=== PATIENT | male | born 1985 | race African-American/Black ===

== ENCOUNTER 2016-08-27 01:04 | Emergency (ER) | payer MEDICAID ==
[~2016-08-27] VITALS: Ht 177.8 cm; Wt 77.0 kg
[2016-08-27 01:15] VITALS: BP 130/95
[2016-08-27] MEDS ORDERED: TETANUS, DIPHTHERIA, PERTUSSIS VAC/PF 0.5ML (>7YR OLD) IM ONE (03:00)
[2016-08-27] MEDS ORDERED: LIDOCAINE HCL 1%/EPI 1:200,000 30 ML VIAL MC ONE (03:00)
[2016-08-27] MEDS ORDERED: BACITRACIN ZINC OINT UDPKT TOP ONE (03:00)
== END 2016-08-27 03:46 | disposition home or self-care (01) ==
LOC: ER 01:12
DX: S01.81XA Laceration without foreign body of other part of head, initial encounter (principal); F32.9 Major depressive disorder, single episode, unspecified; F90.9 Attention-deficit hyperactivity disorder, unspecified type; F12.10 Cannabis abuse, uncomplicated; W22.8XXA Striking against or struck by other objects, initial encounter; Y93.89 Activity, other specified; Y92.89 Other specified places as the place of occurrence of the external cause; Y99.8 Other external cause status
CPT/HCPCS: 12011; 90471; 90715; 99283; Z7610

== ENCOUNTER 2021-01-29 09:50 | Inpatient (IN) | payer MEDICAID ==
[~2021-01-29] VITALS: Ht 172.7 cm; Wt 77.1 kg
[2021-01-29] VITALS (7 sets, daily range): BP systolic 116–134; BP diastolic 59–83
[2021-01-29] MEDS ORDERED: ACETAMINOPHEN 500MG TABLET PO NR (11:30)
[2021-01-29] MEDS ORDERED: ACETAMINOPHEN 500MG TABLET PO ONE (11:30)
[2021-01-29] MEDS ORDERED: LIDOCAINE HCL/PF 1% 10 MG/ML 5ML VIAL INFIL ONE (11:30)
[2021-01-29] MEDS ORDERED: BACITRACIN ZINC OINT UDPKT TOP NR (11:30)
[2021-01-29] MEDS ORDERED: BACITRACIN ZINC OINT UDPKT TOP ONE (11:30)
[2021-01-29] MEDS ORDERED: LIDOCAINE HCL 1% 10 MG/ML 10ML VIAL INJ NR (11:30)
[2021-01-29] MEDS ORDERED: CEFAZOLIN 1000MG PREMIX 50 ML IV ONE (13:45)
[2021-01-29] MEDS ORDERED: SODIUM CHLORIDE 0.9% 1,000 ML IV ONE (13:45)
[2021-01-29] MEDS ORDERED: GENTAMICIN 80MG PREMIX 100 ML IV ONE (13:45)
[2021-01-29 14:11] LABS: BASOPHILS % 0.7 % (0.0-2.0); EOSINOPHILS % 1.9 % (0.0-5.0); HEMATOCRIT. 39.1 % (42.0-52.0); HEMOGLOBIN. 12.9 g/dL (14.0-18.0); MEAN CORPUSCULAR HEMOGLOBIN 30.4 pg (28.0-32.0); MEAN CORPUSCULAR VOLUME 92.1 fL (80.0-94.0); MEAN PLATELET VOLUME 11.2 fl (7.4-10.4); MONOCYTES % 9.1 % (2.0-8.0); NEUTROPHILS % 73.3 % (40.0-76.0); PLATELET 193 x1000/uL (130-400); RED BLOOD CELL COUNT 4.24 mill/uL (4.7-6.1); RED CELL DISTRIBUTION WIDTH 13.1 % (11.6-14.6)
[2021-01-29] MEDS ORDERED: LEVETIRACETAM 500MG PREMIX 100 ML IV ONE (14:15)
[2021-01-29 14:18] LABS: CHLORIDE 107 mEq/L (98-107)
[2021-01-29 14:22] LABS: PARTIAL THROMBOPLASTIN TIME 29.5 sec (23.4-31.0); PROTHROMBIN TIME 11.1 sec (9.6-11.0)
[2021-01-29 15:58] LABS: CLARITY URINE TURBID (CLEAR); COLOR URINE YELLOW (YELLOW); KETONES URINE NEGATIVE (NEGATIVE); LEUKOCYTE ESTERASE URINE NEGATIVE (NEGATIVE); NITRITE URINE NEGATIVE (NEGATIVE); OCCULT BLOOD URINE NEGATIVE (NEGATIVE); PROTEIN URINE 1+ (NEGATIVE); SPECIFIC GRAVITY URINE 1.021 (1.005-1.030)
[2021-01-29] MEDS ORDERED: HYDROCODONE/APAP 7.5/325MG 1 TAB TABLET PO PRN (18:30)
[2021-01-29] MEDS ORDERED: CLONIDINE 0.1MG TABLET PO PRN (18:30)
[2021-01-29] MEDS ORDERED: ONDANSETRON HCL 4MG/2ML INJ IV PRN (18:30)
[2021-01-29] MEDS ORDERED: DOCUSATE SODIUM 100MG CAPSULE PO PRN (18:30)
[2021-01-29] MEDS ORDERED: GUAIFENESIN 200MG/10ML SUGAR FREE UDC PO PRN (18:30)
[2021-01-29] MEDS ORDERED: ACETAMINOPHEN 325MG TABLET PO PRN (18:30)
[2021-01-29] MEDS ORDERED: NALOXONE HCL 0.4MG/ML VIAL IV PRN (18:45)
[2021-01-30] VITALS (34 sets, daily range): BP systolic 97–151; BP diastolic 42–123
[2021-01-30 05:54] LABS: BASOPHILS % 0.8 % (0.0-2.0); EOSINOPHILS % 3.3 % (0.0-5.0); HEMATOCRIT. 37.4 % (42.0-52.0); HEMOGLOBIN. 12.4 g/dL (14.0-18.0); LYMPHOCYTES % 26.1 % (20.0-50.0); MEAN CORPUSCULAR HEMOGLOBIN 30.7 pg (28.0-32.0); MEAN CORPUSCULAR VOLUME 92.5 fL (80.0-94.0); MONOCYTES % 13.2 % (2.0-8.0); NEUTROPHILS % 56.6 % (40.0-76.0); RED BLOOD CELL COUNT 4.04 mill/uL (4.7-6.1)
[2021-01-30 06:02] LABS: CHLORIDE 108 mEq/L (98-107)
[2021-01-30 14:42] LABS: MEAN PLATELET VOLUME 11.3 fl (7.4-10.4); PLATELET 163 x1000/uL (130-400)
[2021-01-30] MEDS: HYDROCODONE/APAP 7.5/325MG 1 TAB TABLET PO PRN (23:57)
[2021-01-31] VITALS: BP 117/60
[2021-01-31 04:00] VITALS: BP 113/65
[2021-01-31 08:00] VITALS: BP 120/60
[2021-01-31] MEDS: HYDROCODONE/APAP 7.5/325MG 1 TAB TABLET PO PRN (11:19)
[2021-01-31 12:00] VITALS: BP 122/54
[2021-01-31 16:00] VITALS: BP 122/69
[2021-02-01 08:00] VITALS: BP 113/69
[2021-02-01 12:09] VITALS: BP 113/69
== END 2021-02-01 12:16 | disposition home or self-care (01) | DRG 364 ==
LOC: ER 09:50 → MICUSO 15:40 → EDBEDREQ 15:42 → EDBEDREQTM 15:42 → ENRESERV 20:23 → 6EST 01-30 16:45
PROVIDERS: ADMIT Hospitalist; ATTEND Hospitalist
PROC: 0WQ0XZZ Repair Head, External Approach (ICD-10-PCS; principal; 2021-01-29)
DX: S01.81XA Laceration without foreign body of other part of head, initial encounter (principal); S02.0XXA Fracture of vault of skull, initial encounter for closed fracture; F32.A Depression, unspecified; Z20.822 Contact with and (suspected) exposure to COVID-19; I10 Essential (primary) hypertension; X58.XXXA Exposure to other specified factors, initial encounter; Y93.89 Activity, other specified; Z59.00 Homelessness unspecified; Y92.89 Other specified places as the place of occurrence of the external cause; Y99.8 Other external cause status
CPT/HCPCS: 36415; 70486; 71045; 80053; 81003; 85025; 87426; 93005; 99285; J0690; J1580; J1953; J3490; J7030